=== PATIENT | female | born 1990 | race Caucasian/White ===

== ENCOUNTER 2018-07-30 20:06 | Emergency (ER) | payer MEDICARE ==
[2018-07-30 20:30] VITALS: O2SAT 98
[2018-07-30] MEDS ORDERED: Albuterol-Ipratrop 3 mg / 0.5 (3 ml) UD IH STA (21:31)
[2018-07-30] MEDS ORDERED: Promethazine/Cod 6.25mg-10mg/5ml Syr UD PO STA (21:31)
--- NOTE | 2018-07-30 21:35 | ED PDOC ---
HPI: CCC, URI, Sore Throat Time Seen by Provider: 07/30/18 21:16 Chief Complaint (Nursing): Cough, Cold, Congestion Chief Complaint (Provider): cough History Per: Patient History/Exam Limitations: no limitations Onset/Duration Of Symptoms: Days (2 weeks) Current Symptoms Are (Timing): Still Present Associated Symptoms: Cough, Sputum, Nasal Congestion Additional Complaint(s): 28 y/o female history of asthma, hypertension presents for evaluation of cough and congestion x 2 weeks. Patient states cough sometimes productive of clear/white sputum. Associated chest and back pain with coughing. Denies fever, ear pain, throat pain, shortness of breath, palpitations, abdominal pain, leg pain/swelling, recent travel Past Medical History Reviewed: Historical Data, Nursing Documentation, Vital Signs Vital Signs: Last Vital Signs Temp 98.4 F 07/30/18 20:19 Pulse 122 H 07/30/18 20:19 Resp 17 07/30/18 20:19 BP 163/100 H 07/30/18 20:19 Pulse Ox 98 07/30/18 20:19 - Medical History PMH: Asthma, HTN - Surgical History Surgical History: No Surg Hx - Family History Family History: States: Unknown Family Hx - Home Medications Home Medications: Ambulatory Orders Medication Instructions Recorded Fluticasone Nasal [Flonase] 1 actuation NS BID #1 bottle 11/03/14 Guaifenesin/Dextromethorphan 1 - 2 ter PO BID #20 ter 11/03/14 [Mucinex Dm 30 mg-600 mg] Fluticasone Propionate [Flonase] 2 spr NS DAILY #1 bottle 01/16/15 Olopatadine 0.1% Opht [Patanol 5 1 drop BOTHEYES DAILY #1 bottle 01/16/15 Ml] Amoxicillin [Amoxil] 500 mg PO TID #30 cap 09/17/15 Codeine Phos/Phenyleph HCl/P 5 ml PO Q6H #100 syr 09/17/15 [Phenergan Vc W/Codeine 120 ml] Prednisone 10 mg PO TID #15 tab 09/17/15 Ibuprofen [Motrin] 600 mg PO Q8 #20 tab 11/21/15 Azithromycin [Zithromax] 250 mg PO DAILY #6 dose 10/26/16 Promethazine HCl/Codeine 10 ml PO Q6 PRN #120 ml 10/26/16 [Prometh-Codein 6.25-10 mg/5 ml] Albuterol HFA [Ventolin HFA 90 1 puff IH Q4 PRN #1 inh 07/30/18 mcg/actuation (8 g)] Fluticasone Nasal [Flonase] 1 actuation NS BID #1 bottle 07/30/18 Ibuprofen [Motrin Tab] 1 tab PO Q6 PRN #15 tab 07/30/18 Promethazine HCl/Codeine 5 ml PO Q8 PRN #50 ml 07/30/18 [Promethazine-Codeine Syrup] - Allergies Allergies/Adverse Reactions: Allergies Allergy/AdvReac Type Severity Reaction Status Date / Time peach Allergy ANAPHYLAXIS Verified 10/26/16 16:36 Review of Systems ROS Statement: Except As Marked, All Systems Reviewed And Found Negative ENT: Positive for: Nose Congestion Respiratory: Positive for: Cough, Sputum Physical Exam - Reviewed Nursing Documentation Reviewed: Yes Vital Signs Reviewed: Yes - Physical Exam Appears: Positive for: Well, Non-toxic, Uncomfortable (actively coughing) Head Exam: Positive for: ATRAUMATIC, NORMAL INSPECTION, NORMOCEPHALIC Skin: Positive for: Normal Color Eye Exam: Positive for: Normal appearance ENT: Positive for: Normal ENT Inspection Cardiovascular/Chest: Positive for: Regular Rate, Rhythm Respiratory: Positive for: Normal Breath Sounds Gastrointestinal/Abdominal: Positive for: Normal Exam Back: Positive for: Normal Inspection Extremity: Positive for: Normal ROM Neurologic/Psych: Positive for: Alert, Oriented (x3) - ECG ECG: Positive for: Viewed By Me (reviewed by ED attending) ECG Rhythm: Positive for: Sinus Tachycardia (105bpm) O2 Sat by Pulse Oximetry: 98 - Radiology X-Ray: Viewed By Me X-Ray Interpretation: No Acute Disease - Progress ED Course And Treament: -ekg -cxr -duoneb -promethazine with codeine -ibuprofen PO On re-eval, patient resting comfortably; states cough resolved Patient educated on findings, discharged with rx ibuprofen, flonase, albuterol HFA, promethazine with codeine Advised follow up PMD within 2-3 days Rest. Fluids Return precautions given Disposition - Clinical Impression Clinical Impression: Bronchitis - Patient ED Disposition Is Patient to be Admitted: No Counseled Patient/Family Regarding: Studies Performed, Diagnosis, Need For Followup, Rx Given - Disposition Disposition: Routine/Home Disposition Time: 23:33 Condition: IMPROVED Prescriptions: Albuterol HFA [Ventolin HFA 90 mcg/actuation (8 g)] 1 puff IH Q4 PRN #1 inh PRN Reason: Wheezing Fluticasone Nasal [Flonase] 1 actuation NS BID #1 bottle Ibuprofen [Motrin Tab] 1 tab PO Q6 PRN #15 tab PRN Reason: Pain, Moderate (4-7) Promethazine HCl/Codeine [Promethazine-Codeine Syrup] 5 ml PO Q8 PRN #50 ml PRN Reason: Cough Instructions: Acute Bronchitis Forms: [employer] (Divehi)
[2018-07-30] MEDS ORDERED: Albuterol-Ipratrop 3 mg / 0.5 (3 ml) UD ONE (21:49)
[2018-07-30] MEDS ORDERED: Promethazine/Cod 6.25mg-10mg/5ml Syr UD ONE (21:49)
[2018-07-30 23:44] VITALS: BP 140/90; PULSE 95; RESP 18; TEMP 97.6
--- NOTE | 2018-07-31 06:57 | CARD ---
APPROVED REPORT Date of service: 07/30/2018 EKG Measurement Heart [id number] <Conclusion> Sinus tachycardia Otherwise normal ECG
--- NOTE | 2018-07-31 09:00 | RAD ---
Date of service: 07/30/2018 HISTORY: Cough COMPARISON: 10/26/2016 TECHNIQUE: Chest PA and lateral FINDINGS: LINES AND TUBES: None. LUNG AND PLEURA: The lungs are well inflated and clear. No pleural effusion or pneumothorax. HEART AND MEDIASTINUM: The heart is not enlarged. No aortic atherosclerotic calcification present. The hilar and mediastinal contours are within normal limits. SKELETAL STRUCTURES: The bony structures are within normal limits for the patient's age. VISUALIZED UPPER ABDOMEN: Normal. OTHER FINDINGS: None. IMPRESSION: No active pulmonary disease.
== END 2018-07-31 00:02 | disposition home or self-care (01) ==
LOC: H.ER 20:06
DX: J40 Bronchitis, not specified as acute or chronic (principal); I10 Essential (primary) hypertension

== ENCOUNTER 2019-01-10 09:24 | Emergency (ER) | payer MEDICARE ==
[2019-01-10 09:28] VITALS: BMI 34.0
[2019-01-10 09:29] VITALS: TEMP 98.6; O2SAT 98
--- NOTE | 2019-01-10 10:43 | ED PDOC ---
HPI: Influenza Time Seen by Provider: 01/10/19 09:41 Chief Complaint: Cough, Cold, Congestion Chief Complaint (Provider): cough History Per: Patient Exam Limitations: no limitations Risk factors for flu complications: Yes: chronic lung disease Additional complaint(s):: 28 y/o F with hx of asthma who presents with cough x 3 days productive of whitish sputum. She had one episode of post-tussive vomiting and has been having chest pain only after coughing with SOB while coughing only. She has been using her albuterol inhaler and nebulizer with minimal relief. Sore throat began after coughing. Denies fever, chills, night sweats, ear pain, body aches, diarrhea. Past Medical History Reviewed: Historical Data, Nursing Documentation, Vital Signs Vital Signs: Last Vital Signs Temp 98.6 F 01/10/19 09:27 Pulse 108 H 01/10/19 09:27 Resp 17 01/10/19 09:27 BP 163/102 H 01/10/19 09:27 Pulse Ox 98 01/10/19 09:27 - Medical History PMH: Asthma, HTN - Family History Family History: States: Unknown Family Hx - Home Medications Home Medications: Ambulatory Orders Medication Instructions Recorded Fluticasone Nasal [Flonase] 1 actuation NS BID #1 bottle 11/03/14 Guaifenesin/Dextromethorphan 1 - 2 ter PO BID #20 ter 11/03/14 [Mucinex Dm 30 mg-600 mg] Fluticasone Propionate [Flonase] 2 spr NS DAILY #1 bottle 01/16/15 Olopatadine 0.1% Opht [Patanol 5 1 drop BOTHEYES DAILY #1 bottle 01/16/15 Ml] Amoxicillin [Amoxil] 500 mg PO TID #30 cap 09/17/15 Codeine Phos/Phenyleph HCl/P 5 ml PO Q6H #100 syr 09/17/15 [Phenergan Vc W/Codeine 120 ml] Prednisone 10 mg PO TID #15 tab 09/17/15 Ibuprofen [Motrin] 600 mg PO Q8 #20 tab 11/21/15 Azithromycin [Zithromax] 250 mg PO DAILY #6 dose 10/26/16 Promethazine HCl/Codeine 10 ml PO Q6 PRN #120 ml 10/26/16 [Prometh-Codein 6.25-10 mg/5 ml] Albuterol HFA [Ventolin HFA 90 1 puff IH Q4 PRN #1 inh 07/30/18 mcg/actuation (8 g)] Fluticasone Nasal [Flonase] 1 actuation NS BID #1 bottle 07/30/18 Ibuprofen [Motrin Tab] 1 tab PO Q6 PRN #15 tab 07/30/18 Promethazine HCl/Codeine 5 ml PO Q8 PRN #50 ml 07/30/18 [Promethazine-Codeine Syrup] Albuterol 0.083% [Albuterol 0.083% 3 ml IH Q6 PRN 7 Days neb 01/10/19 Inhal Jovana (2.5 mg/3 ml) UD] Benzonatate [Tessalon Perles] 100 mg PO BID PRN 7 Days sgl 01/10/19 Ibuprofen [Motrin Tab] 600 mg PO Q6 PRN 7 Days tab 01/10/19 - Allergies Allergies/Adverse Reactions: Allergies Allergy/AdvReac Type Severity Reaction Status Date / Time peach Allergy ANAPHYLAXIS Verified 10/26/16 16:36 Review of Systems Constitutional: Negative for: Fever, Chills Cardiovascular: Negative for: Palpitations Respiratory: Positive for: Cough, Shortness of Breath, Pleuritic Pain Gastrointestinal: Positive for: Vomiting. Negative for: Abdominal Pain, Diarrhea Physical Exam - Reviewed Nursing Documentation Reviewed: Yes Vital Signs Reviewed: Yes - Physical Exam Appears: Positive for: Non-toxic Head Exam: Positive for: ATRAUMATIC Skin: Positive for: Normal Color ENT: Positive for: TM Is/Are (normal B/L), Pharyngeal Erythema (mild). Negative for: Sinus Pain/Drainage, Nasal Congestion, Tonsillar Exudate, Tonsillar Swelling Cardiovascular/Chest: Positive for: Regular Rate, Rhythm Respiratory: Positive for: Normal Breath Sounds Gastrointestinal/Abdominal: Positive for: Normal Exam Neurological/Psych: Positive for: Awake, Alert, Oriented Medical Decision Making Medical Decision Making: Ibuprofen 600mg PO x 1 Urine preg Clonidine 0.1mg PO x 1 12:55pm: re-evaluated; BP 124/77 (taken by me) from 163/111, feeling well, no dizziness. Stable for d/c home. Pt advised to not take her home BP medication until tomorrow. - ECG O2 Sat by Pulse Oximetry: 98 Disposition - Clinical Impression Clinical Impression: Common cold - Patient ED Disposition Is Patient to be Admitted: No Counseled Patient/Family Regarding: Diagnosis, Need For Followup, Rx Given - Disposition Referrals: Tyron Jackson MD [Staff Provider] - Disposition: Routine/Home Disposition Time: 12:50 Condition: STABLE Additional Instructions: Return to ER if you develop worsening shortness of breath or fevers. Take Tessalon Perles and albuterol nebulizer for cough. Take Ibuprofen or Tylenol for chest pain. Prescriptions: Albuterol 0.083% [Albuterol 0.083% Inhal Jovana (2.5 mg/3 ml) UD] 3 ml IH Q6 PRN 7 Days neb PRN Reason: Cough Benzonatate [Tessalon Perles] 100 mg PO BID PRN 7 Days sgl PRN Reason: Cough Ibuprofen [Motrin Tab] 600 mg PO Q6 PRN 7 Days tab PRN Reason: Pain, Moderate (4-7) Instructions: Cough, Runny Nose, and the Common Cold (DC) Forms: [employer] (Serbian) Print Language: GABONESE
[2019-01-10 13:30] VITALS: BP 124/77; PULSE 73; RESP 18
== END 2019-01-10 13:00 | disposition home or self-care (01) ==
LOC: H.ER 09:24
DX: J00 Acute nasopharyngitis [common cold] (principal); I10 Essential (primary) hypertension; J45.909 Unspecified asthma, uncomplicated; Z79.899 Other long term (current) drug therapy